=== PATIENT | male | born 1990 | race Two or more races ===

== ENCOUNTER 2018-12-14 07:32 | Emergency (ER) | payer SELFPAY ==
[~2018-12-14] VITALS: Ht 170.2 cm; Wt 73.0 kg
[2018-12-14] MEDS ORDERED: HYDROCODONE/ACETAMINOPHEN 5/325MG TABLET PO ONE (08:45)
[2018-12-14 13:40] VITALS: BP 138/69
== END 2018-12-14 13:40 | disposition home or self-care (01) ==
LOC: ER 07:32
DX: M79.604 Pain in right leg (principal); M25.561 Pain in right knee; V19.88XA Pedal cyclist (driver) (passenger) injured in other specified transport accidents, initial encounter; Y93.55 Activity, bike riding; Y92.89 Other specified places as the place of occurrence of the external cause; Y99.8 Other external cause status
CPT/HCPCS: 72170; 73552; 73562; 73590; 73700; 99284